=== PATIENT | female | born 1970 | race Caucasian/White ===

== ENCOUNTER 2019-03-22 20:48 | Emergency (ER) | payer BC ==
[~2019-03-22] VITALS: Ht 162.6 cm; Wt 110.0 kg
[2019-03-22 20:52] VITALS: Ht 162.6 cm; Wt 110.0 kg
--- NOTE | 2019-03-22 20:54 | ERD ---
ER Documentation Chief Complaint Chief Complaint Dizziness HPI The patient is a 48-year-old female, presenting to the ER because of acute dizziness after she use her inhaler Dulera. It was uncertain if she had syncope. She denies neck pain, chest pain, dyspnea, abdominal pain, vomiting, dysuria, diarrhea. She does not smoke nor drink Past medical history: Hypertension, diabetes mellitus, asthma Past surgical history: Appendectomy, LAP-BAND placement and removal in 2017 ROS All systems reviewed and are negative except as per history of present illness. Allergies Allergies: Coded Allergies: Penicillins (Verified Allergy, Severe, HIVES, 03/23/19) prednisone (Unverified Allergy, Severe, MUSCLE SPASM; HIVES, 03/23/19) morphine (Unverified Allergy, Mild, SWELLING, 03/23/19) ondansetron (Verified Allergy, Unknown, 03/22/19) Physical Exam Vitals Vital Signs Date Temp Pulse Resp B/P (MAP) Pulse Ox O2 O2 Flow FiO2 Time Delivery Rate 03/22/19 98.7 79 18 125/81 100 Room Air 22:50 (96) 03/22/19 98.7 89 19 126/65 100 20:52 (85) Physical Exam Const: No acute distress. Head: Atraumatic. Eyes: Normal Conjunctiva. ENT: Normal External Ears, Nose and Mouth. Neck: Full range of motion. No meningismus. Resp: Clear to auscultation bilaterally. Cardio: Regular rate and rhythm. Abd: Soft, non distended, normal bowel sounds, non tender. Skin: No petechiae or rashes. Back: No midline or flank tenderness. Ext: No cyanosis, or edema. Neur: Awake and alert. No focal deficit Psych: Normal Mood and Affect. Result Diagram: 03/22/19212003/22/192120 Results 24 hrs Laboratory Tests Test 03/22/19 21:19 03/22/19 21:21 Bedside Glucose 151 mg/dL White Blood Count 10.4 10^3/ul Red Blood Count 4.07 10^6/ul Hemoglobin 11.7 g/dl Hematocrit 34.9 % Mean Corpuscular Volume 85.7 fl Mean Corpuscular Hemoglobin 28.7 pg Mean Corpuscular Hemoglobin Concent 33.5 g/dl Red Cell Distribution Width 13.0 % Platelet Count 333 10^3/UL Mean Platelet Volume 9.1 fl Immature Granulocytes % 0.300 % Neutrophils % 50.6 % Lymphocytes % 39.8 % Monocytes % 4.9 % Eosinophils % 3.8 % Basophils % 0.6 % Nucleated Red Blood Cells % 0.0 /100WBC Immature Granulocytes # 0.030 10^3/ul Neutrophils # 5.3 10^3/ul Lymphocytes # 4.1 10^3/ul Monocytes # 0.5 10^3/ul Eosinophils # 0.4 10^3/ul Basophils # 0.1 10^3/ul Nucleated Red Blood Cells # 0.0 10^3/ul Sodium Level 141 mmol/L Potassium Level 3.9 mmol/L Chloride Level 107 mmol/L Carbon Dioxide Level 23 mmol/L Anion Gap 11 Blood Urea Nitrogen 17 mg/dl Creatinine 0.57 mg/dl Est Glomerular Filtrat Rate mL/min > 60 mL/min Glucose Level 161 mg/dl Calcium Level 9.3 mg/dl Troponin I < 0.012 ng/ml Serum HCG, Qualitative NEGATIVE Beta HCG, Quantitative < 2.4 mIU/ml Current Medications Medications Dose Sig/Natalie Start Time Status Last (Trade) Ordered Route PRN Stop Time Admin Dose Reason Admin 10 mg ONCE ONCE 03/22/19 DC 03/22/19 Metoclopramid IV 22:00 21:54 e HCl 03/22/19 22:01 (Reglan) Procedures/MDM EKG: Read by emergency physician Rate/Rhythm: Normal Sinus Rhythm 92 beats/min QRS, ST, T-waves: No ST elevation, no T inversion Impression: Normal EKG [place] [id number] Radiology Main Line: [phone] DIAGNOSTIC IMAGING REPORT Patient: MARGARITO CARMEN : 1970 Age: 48 Sex: F MR #: [id number] DOS: 03/22/192101 Ordering MD: MICA TAYLOR MD Location: E/R Room/Bed: PROCEDURE: CT Head without. CLINICAL INDICATION: Left-sided weakness. TECHNIQUE: The study was performed utilizing a multi-slice, multidetector CT scanner. Direct spiral 1 mm axial sections were obtained through the head without the use of intravenous contrast material. 1 or more of the following dose reduction techniques were utilized: Automated exposure control, adjustment of the mA and/or kV according to patient's size, iterative reconstruction technique. Coronal and sagittal reformations were obtained. The images were reviewed on a PACS workstation. DICOM images are available. RADIATION DOSE: CTDIvol: 37.8 mGy mGy DLP: 634.23 mGy.cm mGy-cm COMPARISON: No prior studies are available for comparison. FINDINGS: There is no intracranial hemorrhage, extra-axial fluid collection, mass lesion, midline shift or hydrocephalus. The ventricles, sulci and cisterns are within normal limits. The white matter is unremarkable. The srinivasan-white matter differentiation is preserved. The basal cisterns are patent. The midline structures are intact. The orbits, calvarium and extracranial soft tissues are normal in appearance. The visualized paranasal sinuses, mastoid air cells and middle ear cavities are normally aerated. IMPRESSION: 1. No acute intracranial abnormality. No intracranial hemorrhage, extra-axial fluid collection, mass lesion or hydrocephalous. RPTAT: HGAS .Suresh Estes MD, MD Date Time Electronically viewed and signed by .Suresh Estes MD, MD on 03/22/2019 21:57 .S/ CC: MCIA TAYLOR MD [phone] [place] [id number] Radiology Main Line: [phone] DIAGNOSTIC IMAGING REPORT Patient: MARGARITO CARMEN : 1970 Age: 48 Sex: F MR #: [id number] DOS: 03/22/192101 Ordering MD: MICA TAYLOR MD Location: E/R Room/Bed: PROCEDURE: XR Chest. CLINICAL INDICATION: Shortness of breath TECHNIQUE: Single frontal view of the chest was obtained COMPARISON: None FINDINGS: The heart and mediastinum are within normal limits. There is mild elevation of the right diaphragm. The lungs are clear. There is no pleural effusion or pneumothorax. RPTAT: AA IMPRESSION: No acute disease. .Callum Diaz MD, MD Date Time Electronically viewed and signed by .Callum Diaz MD, on 03/22/2019 21:45 .S/ CC: MICA TAYLOR MD [phone] EKG: Read by emergency physician Rate/Rhythm: Normal Sinus Rhythm 92 beats/min QRS, ST, T-waves: No ST elevation, no T inversion, septal Q's Impression: Abnormal EKG MEDICAL MAKING DECISION: The patient is a 48-year-old female, presenting with acute dizziness of unclear etiology, treated with Reglan 10 mg IV for now sent with good response, is stable for outpatient follow-up The differential diagnoses considered include but are not limited to central causes such as cerebellar infarct, cerebellar hemorrhage, cerebellar tumor, acoustic neuroma, peripheral causes such as benign positional vertigo, labyrinthitis, medication, Meniere's disease. Departure Diagnosis: Primary Impression: Dizziness Additional Impression: Anemia Condition: Good Comments I discussed the findings with the patient. I advised the patient to follow-up with the primary physician in about 1-2 days, sooner if needed and return if any concern. Disclaimer: Inadvertent spelling and grammatical errors are likely due to EHR/dictation software use and do not reflect on the overall quality of patient care. Also, please note that the electronic time recorded on this note does not necessarily reflect the actual time of the patient encounter. MICA TAYLOR MD Mar 22, 2019 20:54
[2019-03-22] MEDS ORDERED: METOCLOPRAMIDE 10 MG INJ IV ONE (22:00)
[2019-03-22 22:50] VITALS: BP 125/81; PULSE 79; RESP 18
== END 2019-03-22 22:52 | disposition home or self-care (01) ==
LOC: E/R 20:48
DX: D64.9 Anemia, unspecified (principal); I10 Essential (primary) hypertension; E11.9 Type 2 diabetes mellitus without complications; J45.909 Unspecified asthma, uncomplicated
CPT/HCPCS: 36415; 70450; 71045; 80048; 82962; 84484; 84702; 84703; 85025; 93005; 96374; 99285; J2765